=== PATIENT | female | born 1990 | race American Indian/Alaskan Native ===

== ENCOUNTER 2016-09-13 21:12 | Emergency (ER) | payer MEDICAID, OTHER ==
[2016-09-13 22:36] LABS: Hematocrit 40.3 % (30.3-42.9); Hemoglobin 13.2 gm/dl (10.1-14.3); Mean Corpuscular HGB Conc 33 % (30-34); Mean Corpuscular Hemoglobin 29 pg (28-32); Mean Corpuscular Volume 88 fl (79-97); Platelet Count 195 K/mm3 (140-440); Red Blood Count 4.56 M/mm3 (3.65-5.03); Red Cell Distribution Width 12.6 % (13.2-15.2); White Blood Count 8.3 K/mm3 (4.5-11.0)
[2016-09-13 22:53] LABS: Anion Gap 19 mmol/L; Blood Urea Nitrogen 7 mg/dL (7-17); Calcium 9.3 mg/dL (8.4-10.2); Carbon Dioxide 19 mmol/L (22-30); Chloride 99.3 mmol/L (98-107); Glucose 86 mg/dL (65-100); Potassium 3.6 mmol/L (3.6-5.0); Sodium 134 mmol/L (137-145)
[2016-09-13 23:09] LABS: Blastocytes % (Manual) 0 %
[2016-09-13 23:10] LABS: Basophils % (Manual) 0 % (0.0-1.8); Diff Status Complete; Eosinophils % (Manual) 0 % (0.0-4.3); Platelet Estimate Consistent w Auto; RBC Morphology Normal
[2016-09-14] MEDS ORDERED: ZOFRAN IV ONE (08:15)
[2016-09-14] MEDS ORDERED: NACL 0.9% 1000 ML 1,000 ML IV ONE (08:15)
--- NOTE | 2016-09-14 08:20 | Emergency Department Report ---
- General Chief complaint: Dizziness Stated complaint: HIGH BP Time Seen by Provider: 09/14/16 08:14 Source: patient Mode of arrival: Ambulatory Limitations: No Limitations - History of Present Illness MD Complaint: generalized weakness, lack of energy -: Gradual Location: generalized Severity: mild Severity scale (0 -10): 3 Consistency: intermittent, now resolved Improves with: none Worsens with: none Associated Symptoms: denies: chest pain, confusion, dark stools, diaphoresis, dysuria, easy bruising, fever/chills, headaches - Related Data Allergies Allergy/AdvReac Type Severity Reaction Status Date / Time No Known Allergies Allergy Verified 02/11/16 00:40 ED Review of Systems ROS: Stated complaint: HIGH BP Other details as noted in HPI Comment: All other systems reviewed and negative ED Past Medical Hx - Past Medical History Previous Medical History?: No - Surgical History Past Surgical History?: No - Social History Smoking Status: Never Smoker Substance Use Type: None ED Physical Exam - General Limitations: No Limitations General appearance: alert, in no apparent distress - Head Head exam: Present: atraumatic, normocephalic - Eye Eye exam: Present: normal appearance - ENT ENT exam: Present: mucous membranes moist - Neck Neck exam: Present: normal inspection - Respiratory Respiratory exam: Present: normal lung sounds bilaterally. Absent: respiratory distress, wheezes, rales, rhonchi - Cardiovascular Cardiovascular Exam: Present: normal rhythm, tachycardia. Absent: systolic murmur, diastolic murmur, rubs, gallop - GI/Abdominal GI/Abdominal exam: Present: soft, normal bowel sounds - Extremities Exam Extremities exam: Present: normal inspection - Back Exam Back exam: Present: normal inspection - Neurological Exam Neurological exam: Present: alert, oriented X3 - Psychiatric Psychiatric exam: Present: normal affect, normal mood - Skin Skin exam: Present: warm, dry, intact, normal color. Absent: rash ED Course Vital Signs 09/13/16 09/14/16 09/14/16 22:07 02:33 07:46 Temperature 98.4 F 98.1 F Pulse Rate 111 H 98 H 92 H Respiratory 18 17 Rate Blood Pressure 171/112 157/115 O2 Sat by Pulse 96 100 Oximetry 09/14/16 09/14/16 09/14/16 07:47 07:48 07:50 Temperature Pulse Rate 97 H 98 H 100 H Respiratory 15 12 14 Rate Blood Pressure 148/96 148/96 O2 Sat by Pulse 100 100 Oximetry 09/14/16 09/14/16 09/14/16 07:52 07:54 07:56 Temperature Pulse Rate 116 H 102 H 108 H Respiratory 15 14 18 Rate Blood Pressure 148/96 148/96 148/96 O2 Sat by Pulse 100 100 100 Oximetry 09/14/16 09/14/16 09/14/16 07:58 08:00 08:02 Temperature Pulse Rate 102 H 108 H 107 H Respiratory 24 21 13 Rate Blood Pressure 148/96 151/103 151/103 O2 Sat by Pulse 100 100 100 Oximetry 09/14/16 09/14/16 09/14/16 08:04 08:06 08:08 Temperature Pulse Rate 127 H 117 H 105 H Respiratory 18 20 18 Rate Blood Pressure 151/103 151/103 151/103 O2 Sat by Pulse 100 100 100 Oximetry 09/14/16 09/14/16 09/14/16 08:10 08:12 08:14 Temperature Pulse Rate 105 H 103 H 95 H Respiratory 18 17 23 Rate Blood Pressure 151/103 151/103 151/103 O2 Sat by Pulse 100 100 100 Oximetry 09/14/16 09/14/16 09/14/16 08:16 08:18 08:20 Temperature Pulse Rate 104 H 105 H 112 H Respiratory 15 20 20 Rate Blood Pressure 151/103 151/103 151/103 O2 Sat by Pulse 100 100 100 Oximetry 09/14/16 09/14/16 09/14/16 08:22 08:24 08:26 Temperature Pulse Rate 101 H 98 H 90 Respiratory 21 21 13 Rate Blood Pressure 151/103 151/103 151/103 O2 Sat by Pulse 100 100 100 Oximetry 09/14/16 09/14/16 09/14/16 08:28 08:30 08:32 Temperature Pulse Rate 96 H 95 H 104 H Respiratory 21 25 H 20 Rate Blood Pressure 151/103 152/108 152/108 O2 Sat by Pulse 100 100 100 Oximetry 09/14/16 09/14/16 09/14/16 08:34 08:36 08:38 Temperature Pulse Rate 104 H 99 H 94 H Respiratory 25 H 22 18 Rate Blood Pressure 152/108 152/108 152/108 O2 Sat by Pulse 100 100 100 Oximetry 07/04/17 07/04/17 07/04/17 08:40 08:42 08:44 Temperature Pulse Rate 97 H 104 H 109 H Respiratory 20 22 11 L Rate Blood Pressure 152/108 152/108 152/108 O2 Sat by Pulse 100 100 99 Oximetry 09/14/16 09/14/16 09/14/16 08:46 08:48 08:50 Temperature Pulse Rate 105 H 99 H 95 H Respiratory 20 22 16 Rate Blood Pressure 152/108 152/108 152/108 O2 Sat by Pulse 100 100 100 Oximetry 09/14/16 09/14/16 09/14/16 08:52 08:54 08:56 Temperature Pulse Rate 107 H 102 H 119 H Respiratory 13 18 21 Rate Blood Pressure 152/108 152/108 152/108 O2 Sat by Pulse 100 100 100 Oximetry 09/14/16 09/14/16 09/14/16 08:58 09:00 09:02 Temperature Pulse Rate 98 H 93 H 102 H Respiratory 25 H 21 19 Rate Blood Pressure 152/108 144/95 144/95 O2 Sat by Pulse 100 100 Oximetry 09/14/16 09/14/16 09/14/16 09:04 09:06 09:08 Temperature Pulse Rate 96 H 96 H 98 H Respiratory 19 22 20 Rate Blood Pressure 144/95 144/95 144/95 O2 Sat by Pulse 100 100 100 Oximetry 09/14/16 09/14/16 09/14/16 09:10 09:12 09:14 Temperature Pulse Rate 91 H 97 H 92 H Respiratory 13 17 18 Rate Blood Pressure 144/95 144/95 144/95 O2 Sat by Pulse 100 100 100 Oximetry 09/14/16 09/14/16 09/14/16 09:16 09:18 09:20 Temperature Pulse Rate 95 H 94 H 89 Respiratory 18 17 18 Rate Blood Pressure 144/95 144/95 144/95 O2 Sat by Pulse 100 100 100 Oximetry 09/14/16 09/14/16 09/14/16 09:22 09:24 09:26 Temperature Pulse Rate 94 H 96 H 94 H Respiratory 18 19 16 Rate Blood Pressure 144/95 144/95 144/95 O2 Sat by Pulse 100 100 100 Oximetry 09/14/16 09/14/16 09/14/16 09:28 09:30 09:32 Temperature Pulse Rate 101 H 95 H 94 H Respiratory 18 17 21 Rate Blood Pressure 144/95 137/96 137/96 O2 Sat by Pulse 100 100 Oximetry 09/14/16 09/14/16 09/14/16 09:34 09:36 09:38 Temperature Pulse Rate 109 H 93 H 110 H Respiratory 18 19 14 Rate Blood Pressure 137/96 137/96 137/96 O2 Sat by Pulse 100 100 100 Oximetry 09/14/16 09/14/16 09/14/16 09:40 09:42 09:44 Temperature Pulse Rate 95 H 94 H 94 H Respiratory 18 17 13 Rate Blood Pressure 137/96 137/96 137/96 O2 Sat by Pulse 100 100 100 Oximetry ED Medical Decision Making - Lab Data Result diagrams: 09/13/16 22:24 09/13/16 22:24 - Medical Decision Making patient doing better, improved after ivf, slightly elevated ddimer , we talk about the risk and benefits of obtaining a chest ct and she decided not to get it done yet, she will get vitamins and fluids Critical care attestation.: If time is entered above; I have spent that time in minutes in the direct care of this critically ill patient, excluding procedure time. ED Disposition Clinical Impression: Dizziness, Dehydration Disposition: DC-01 TO HOME OR SELFCARE Is pt being admited?: No Does the pt Need Aspirin: No Condition: Good Instructions: Dehydration (ED) Referrals: PRIMARY CARE, [Primary Care Provider] - 3-5 Days Time of Disposition: 11:29
[2016-09-14 11:43] VITALS: BP 143/103
== END 2016-09-14 12:19 | disposition home or self-care (01) ==
LOC: ED 21:12
DX: R42 Dizziness and giddiness (principal); E86.0 Dehydration
CPT/HCPCS: 36415; 80048; 84484; 84702; 85007; 85025; 85379; 93005; 93010; 96361; 96374; 99284; J2405; J7030

== ENCOUNTER 2018-08-01 12:41 | Emergency (ER) | payer OTHER ==
--- NOTE | 2018-08-01 13:27 | Emergency Department Report ---
Blank Doc - Documentation Documentation: 28 y o female presents with pain with urinating x 6 days 08/21 pain pain worse this am ua/upt ordered ACC eval
--- NOTE | 2018-08-01 13:54 | Emergency Department Report ---
ED Female HPI - General Chief complaint: Urogenital-Female Stated complaint: POSS UTI/CRAMPING Time Seen by Provider: 08/01/18 13:23 Source: patient Mode of arrival: Ambulatory Limitations: No Limitations - History of Present Illness Initial comments: pelvic cramping, dysuria no discharge, denies STI concern reports feels like prior UTI no fever, vomiting, flank pain MD Complaint: dysuria, pelvic pain -: Gradual, week(s) (1) Location: suprapubic Radiation: non-radiating Severity: mild Quality: cramping Consistency: intermittent Improves with: none Worsens with: none Associated Symptoms: denies other symptoms, dysuria - Related Data Previous Rx's Medication Instructions Recorded Last Taken Type cephALEXin [Keflex] 500 mg PO Q12HR #14 cap 08/01/18 Unknown Rx Allergies Allergy/AdvReac Type Severity Reaction Status Date / Time No Known Allergies Allergy Verified 08/01/18 12:42 ED Review of Systems ROS: Stated complaint: POSS UTI/CRAMPING Other details as noted in HPI Comment: All other systems reviewed and negative Genitourinary: as per HPI ED Past Medical Hx - Past Medical History Previous Medical History?: No - Surgical History Past Surgical History?: No - Social History Smoking Status: Never Smoker Substance Use Type: Alcohol - Medications Home Medications: Home Medications Medication Instructions Recorded Confirmed Last Taken Type cephALEXin [Keflex] 500 mg PO Q12HR #14 cap 08/01/18 Unknown Rx ED Physical Exam - General Limitations: No Limitations General appearance: alert, in no apparent distress - Head Head exam: Present: atraumatic, normocephalic - Eye Eye exam: Present: normal appearance - ENT ENT exam: Present: mucous membranes moist - Neck Neck exam: Present: normal inspection - Respiratory Respiratory exam: Present: normal lung sounds bilaterally. Absent: respiratory distress, wheezes - Cardiovascular Cardiovascular Exam: Present: regular rate, normal rhythm. Absent: systolic murmur, diastolic murmur, rubs, gallop - GI/Abdominal GI/Abdominal exam: Present: soft, normal bowel sounds. Absent: tenderness, guarding, rebound - Extremities Exam Extremities exam: Present: normal inspection - Back Exam Back exam: Present: normal inspection. Absent: CVA tenderness (R), CVA tenderness (L) - Neurological Exam Neurological exam: Present: alert, oriented X3 - Psychiatric Psychiatric exam: Present: normal affect, normal mood - Skin Skin exam: Present: warm, dry, intact, normal color. Absent: rash ED Course Vital Signs 08/01/18 13:22 Temperature 98.1 F Pulse Rate 64 Respiratory 16 Rate Blood Pressure 142/89 [Right] O2 Sat by Pulse 99 Oximetry ED Medical Decision Making - Lab Data Lab Results 08/01/18 Range/Units 14:03 Urine Color Yellow (Yellow) Urine Turbidity Slightly-cloudy (Clear) Urine pH 6.0 (5.0-7.0) Ur Specific [place] 1.020 (1.003-1.030) Urine Protein <15 mg/dl (Negative) mg/dL Urine Glucose (UA) Neg (Negative) mg/dL Urine Ketones Neg (Negative) mg/dL Urine Blood Sm (Negative) Urine Nitrite Neg (Negative) Urine Bilirubin Neg (Negative) Urine Urobilinogen 4.0 (<2.0) mg/dL Ur Leukocyte Esterase Mod (Negative) Urine WBC (Auto) 10.0 H (0.0-6.0) /HPF Urine RBC (Auto) 4.0 (0.0-6.0) /HPF U Epithel Cells (Auto) 13.0 (0-13.0) /HPF Urine Bacteria (Auto) 1+ (Negative) /HPF Urine Mucus Few /HPF Urine HCG, Qual Negative (Negative) - Medical Decision Making UTI sx benign exam UA pending UA = UTI abx, hydrate fu pcp - Differential Diagnosis UTI/cystitis, PID less likely Critical care attestation.: If time is entered above; I have spent that time in minutes in the direct care of this critically ill patient, excluding procedure time. ED Disposition Clinical Impression: Acute UTI Disposition: - TO HOME OR SELFCARE Is pt being admited?: No Condition: Good Instructions: Urinary Tract Infection in Women (ED) Prescriptions: cephALEXin [Keflex] 500 mg PO Q12HR #14 cap Referrals: REINALDO QUINTEROS MD [Referring] - 3-5 Days Time of Disposition: 14:45
[2018-08-01 14:29] LABS: Bacteria,Urine 1+ /HPF (Negative); Bilirubin,Urine NEG (Negative); Blood,Urine SM (Negative); Color,Urine Yellow (Yellow); Mucus,Urine FEW /HPF; Protein,Urine <15 mg/dL mg/dL (Negative)
[2018-08-01 14:32] LABS: HCG Qualitative,Urine Negative (Negative)
[2018-08-01 14:53] VITALS: BP 136/84
== END 2018-08-01 14:51 | disposition home or self-care (01) ==
LOC: ED 12:41
DX: N39.0 Urinary tract infection, site not specified (principal)
CPT/HCPCS: 81001; 81025; 87086; 99283

== ENCOUNTER 2018-10-31 19:20 | Emergency (ER) | payer SELFPAY ==
[2018-10-31 20:51] LABS: Bacteria,Urine 1+ /HPF (Negative); Bilirubin,Urine NEG (Negative); Blood,Urine SM (Negative); Color,Urine Yellow (Yellow); Mucus,Urine FEW /HPF; Protein,Urine <15 mg/dL mg/dL (Negative)
[2018-10-31 21:23] LABS: HCG Qualitative,Urine Negative (Negative)
[2018-10-31 21:29] LABS: Hematocrit 42.1 % (30.3-42.9); Hemoglobin 14.4 gm/dl (10.1-14.3); Mean Corpuscular HGB Conc 34 % (30-34); Mean Corpuscular Volume 91 fl (79-97); Platelet Count 191 K/mm3 (140-440); Red Blood Count 4.65 M/mm3 (3.65-5.03)
[2018-10-31 21:43] LABS: Albumin 4.2 g/dL (3.9-5); BUN/Creatinine Ratio 17; Blood Urea Nitrogen 12 mg/dL (7-17); Calcium 9.7 mg/dL (8.4-10.2); Hemolysis Index 16
[2018-10-31 22:04] LABS: Alanine Aminotransferase 5 units/L (7-56)
[2018-10-31] MEDS ORDERED: XYLOCAINE 1% MPF 5 mL INFILTRATI ONE (22:07)
[2018-10-31] MEDS ORDERED: ROCEPHIN IM ONE (22:07)
--- NOTE | 2018-10-31 22:31 | Emergency Department Report ---
ED Abdominal Pain HPI - General Chief Complaint: Abdominal Pain Stated Complaint: CRAMPING/PAIN WHEN USING THE BATHROOM Time Seen by Provider: 10/31/18 22:06 Source: patient Mode of arrival: Ambulatory Limitations: No Limitations - Related Data Previous Rx's Medication Instructions Recorded Last Taken Type cephALEXin [Keflex] 500 mg PO Q12HR #14 cap 10/31/18 Unknown Rx Allergies Allergy/AdvReac Type Severity Reaction Status Date / Time No Known Allergies Allergy Verified 08/01/18 12:42 ED Review of Systems ROS: Stated complaint: CRAMPING/PAIN WHEN USING THE BATHROOM Other details as noted in HPI ED Past Medical Hx - Past Medical History Previous Medical History?: No - Surgical History Past Surgical History?: No - Social History Smoking Status: Never Smoker Substance Use Type: None - Medications Home Medications: Home Medications Medication Instructions Recorded Confirmed Last Taken Type cephALEXin [Keflex] 500 mg PO Q12HR #14 cap 10/31/18 Unknown Rx ED Physical Exam - General Limitations: No Limitations ED Course Vital Signs 10/31/18 19:30 Temperature 99.3 F Pulse Rate 83 Respiratory 18 Rate Blood Pressure 134/97 O2 Sat by Pulse 98 Oximetry ED Medical Decision Making - Lab Data Result diagrams: 10/31/18 20:29 10/31/18 20:29 Critical care attestation.: If time is entered above; I have spent that time in minutes in the direct care of this critically ill patient, excluding procedure time. ED Disposition Clinical Impression: UTI (urinary tract infection) Qualifiers: Urinary tract infection type: acute cystitis Hematuria presence: without hematuria Qualified Code(s): N30.00 - Acute cystitis without hematuria Disposition: DC-01 TO HOME OR SELFCARE Is pt being admited?: No Does the pt Need Aspirin: No Condition: Stable Instructions: Abdominal Pain (ED) Prescriptions: cephALEXin [Keflex] 500 mg PO Q12HR #14 cap Referrals: REINALDO QUINTEROS MD [Primary Care Provider] - 3-5 Days
[2018-10-31 22:59] LABS: Basophils % (Manual) 0 % (0.0-1.8); Large Platelets 1+; Platelet Estimate Consistent w Auto; RBC Morphology Normal; Total Cells Counted 100
[2018-10-31 23:28] VITALS: BP 131/82
== END 2018-10-31 23:28 | disposition home or self-care (01) ==
LOC: ED 19:20
DX: N39.0 Urinary tract infection, site not specified (principal)
CPT/HCPCS: 36415; 80053; 81001; 81025; 85007; 85025; 87086; 96372; 99283; J0696